=== PATIENT | male | born 1990 | race Caucasian/White ===

== ENCOUNTER 2018-01-10 20:23 | Emergency (ER) | payer SELFPAY ==
--- NOTE | 2018-01-10 20:26 | UC ---
Abdominal Pain Male HPI - HPI Summary HPI Summary: 27 yo male presents with generalized abdominal pain worst around the umbilicus that began this morning. Pt does not speak Welsh, but has a friend translating from to and from Amharic with him at this visit. Pt woke up this morning with mild to moderate abdominal pain - tried to eat breakfast, but vomited soon after. Has been vomiting multiple times today and has not eaten due to this. Denies fever, chills, SOB, chest pain, or diarrhea. - History of Current Complaint Stated Complaint: ABDOMINAL PAIN Time Seen by Provider: 01/10/18 20:25 Hx Obtained From: Patient Onset/Duration: Sudden Onset Severity Initially: Moderate Severity Currently: Severe Pain Intensity: 9 Pain Scale Used: 0-10 Numeric - Allergies/Home Medications Allergies/Adverse Reactions: Allergies Allergy/AdvReac Type Severity Reaction Status Date / Time No Known Allergies Allergy Verified 01/10/18 20:50 Home Medications: Home Medications NK [No Home Medications Reported] 01/10/18 [History Confirmed 01/10/18] PMH/Surg Hx/FS Hx/Imm Hx - Additional Past Medical History Additional PMH: None Previously Healthy: Yes - Surgical History Surgical History: Yes Surgery Procedure, Year, and Place: Right ankle - Family History Known Family History: Positive: None - Social History Lives: With Family Alcohol Use: Occasionally Substance Use Type: None Smoking Status (MU): Former Smoker Review of Systems Constitutional: Negative Skin: Negative Eyes: Negative ENT: Negative Respiratory: Negative Cardiovascular: Negative Gastrointestinal: Abdominal Pain, Vomiting, Nausea Genitourinary: Negative Neurovascular: Negative Neurological: Negative Psychological: Negative All Other Systems Reviewed And Are Negative: Yes Physical Exam - Summary Physical Exam Summary: GENERAL: Mild to moderate pain distress. Obese SKIN: No rashes, sores, lesions, or open wounds. NECK: Supple. Nontender. No lymphadenopathy. CHEST: CTAB. No r/r/w. No accessory muscle use. Breathing comfortably and in no distress. CV: RRR. Without m/r/g. Pulses intact. Brisk cap refill. ABDOMEN: Moderate TTP RLQ, LLQ, and RUQ. Severe TTP around umbilicus and LUQ. Soft. Guarding around umbilicus. No distention. Bowel sounds present NEURO: Alert. CN II-XII grossly intact. PSYCH: Age appropriate behavior. Triage Information Reviewed: Yes Vital Signs: Vital Signs: Temp Pulse Resp BP Pulse Ox 98.4 F 75 16 158/96 98 01/10/18 20:40 01/10/18 20:40 01/10/18 20:40 01/10/18 20:40 01/10/18 20:40 Abd Pain Male Course/Dx - Course Course Of Treatment: His symptoms could be related to viral gastroenteritis, however given his degree of abdominal pain - I believe he needs a more appropriate workup with potential labwork and advanced imagaing, therefore I have advised pt to go to the ED for further evaluation. - Differential Dx/Clinical Impression Provider Diagnoses: Abdominal pain. Vomiting Discharge - Sign-Out/Discharge Documenting (check all that apply): Patient Departure - Discharge Plan Condition: Stable Disposition: HOME Print Language: INDONESIAN Referrals: No Primary Care Phys,NOPCP [Primary Care Provider] - Additional Instructions: Please go to the ER for further evaluation of your abdominal pain - Billing Disposition and Condition Condition: STABLE Disposition: Home
[2018-01-10 20:54] VITALS: BP 158/96
== END 2018-01-10 20:55 | disposition home or self-care (01) ==
LOC: UCEAST 20:23
DX: R10.84 Generalized abdominal pain (principal); R11.10 Vomiting, unspecified; Z87.891 Personal history of nicotine dependence
CPT/HCPCS: 99202; G0463

== ENCOUNTER 2018-01-10 21:16 | Observation (INO) | payer SELFPAY ==
[2018-01-10] MEDS ORDERED: NS 0.9% 1000 ML* 1,000 ML IV ONE ×2 (22:03→23:21)
[2018-01-10] MEDS ORDERED: Pantoprazole IV* 40 MG IV ONE (22:03)
[2018-01-10] MEDS ORDERED: Metoclopramide IV* 5 MG/ML 2 ML VIAL IV ONE (22:03)
[2018-01-10] MEDS ORDERED: Morphine VIAL* 4 MG/ML VIAL (1 ml vial) IV ONE (22:05)
[2018-01-10] MEDS ORDERED: Morphine VIAL* 10 MG/ML 1 ML VIAL ONE (22:28)
--- NOTE | 2018-01-10 22:36 | ED ---
Abdominal Pain/Male - HPI Summary HPI Summary: This is Darian Rey documenting for Jamal Garg MD This patient is a 27 year old M presenting to [facility] with a chief complaint of a sharp, mid-abdominal pain since this morning. The patient rates the pain 10/10 in severity and denies any pain radiating to the back. Prior treatment includes a warm pack. The patient reports nausea and vomiting. He does not drink alcohol. - History of Current Complaint Chief Complaint: EDAbdPain Stated Complaint: ABD PAIN Time Seen by Provider: 01/10/18 22:00 Onset/Duration: Sudden Onset, Lasting Hours - Since this morning, Still Present Timing: Constant, Lasting Hours - Since this morning Severity Initially: Severe Severity Currently: Severe Pain Intensity: 10 Pain Scale Used: 0-10 Numeric Location: Other - mid-abdominal Radiates: No Character: Sharp Aggravating Factor(s): Nothing Alleviating Factor(s): Nothing Associated Signs And Symptoms: Positive: Nausea, Vomiting - Allergies/Home Medications Allergies/Adverse Reactions: Allergies Allergy/AdvReac Type Severity Reaction Status Date / Time No Known Allergies Allergy Verified 01/10/18 21:32 PMH/Surg Hx/FS Hx/Imm Hx Endocrine/Hematology History: Denies: Hx Diabetes, Hx Thyroid Disease Cardiovascular History: Denies: Hx Hypertension Respiratory History: Denies: Hx Asthma, Hx Chronic Obstructive Pulmonary Disease (COPD) GI History: Denies: Hx Ulcer - Surgical History Surgery Procedure, Year, and Place: Right ankle Infectious Disease History: No Infectious Disease History: Denies: Hx Hepatitis, Hx Human Immunodeficiency Virus (HIV), Traveled Outside the [place] in Last 30 Days - Family History Known Family History: Negative: Cardiac Disease, Diabetes - Social History Alcohol Use: Occasionally Substance Use Type: Reports: None Smoking Status (MU): Former Smoker Type: Cigarettes Review of Systems Positive: Abdominal Pain - Sharp, mid-abdominal pain since this morning, Vomiting - Starting this afternoon, Nausea Positive: Other - Denies back pain All Other Systems Reviewed And Are Negative: Yes Physical Exam - Summary Physical Exam Summary: VITAL SIGNS: Reviewed. GENERAL: Patient is a well-developed and nourished MALE who is lying comfortable in the stretcher. Patient is not in any acute respiratory distress. HEAD AND FACE: No signs of trauma. No ecchymosis, hematomas or skull depressions. No sinus tenderness. EYES: PERRLA, EOMI x 2, No injected conjunctiva, no nystagmus. EARS: Hearing grossly intact. Ear canals and tympanic membranes are within normal limits. MOUTH: Oropharynx within normal limits. NECK: Supple, trachea is midline, no adenopathy, no JVD, no carotid bruit, no c- spine tenderness, neck with full ROM. CHEST: Symmetric, no tenderness at palpation LUNGS: Clear to auscultation bilaterally. No wheezing or crackles. CVS: Regular rate and rhythm, S1 and S2 present, no murmurs or gallops appreciated. ABDOMEN: Soft, RUQ tenderness. No signs of distention. No rebound no guarding, and no masses palpated. Bowel sounds are normal. EXTREMITIES: FROM in all major joints, no edema, no cyanosis or clubbing. NEURO: Alert and oriented x 3. No acute neurological deficits. Speech is normal and follows commands. SKIN: Dry and warm Triage Information Reviewed: Yes Vital Signs On Initial Exam: Initial Vitals Temp Pulse Resp BP Pulse Ox 98.4 F 72 19 156/88 97 01/10/18 21:24 01/10/18 21:24 01/10/18 21:24 01/10/18 21:24 01/10/18 21:24 Vital Signs Reviewed: Yes Diagnostics - Vital Signs Vital Signs Temp Pulse Resp BP Pulse Ox 01/10/18 22:00 62 23 97 01/10/18 21:50 74 20 152/90 97 01/10/18 21:49 22 01/10/18 21:24 98.4 F 72 19 156/88 97 - Laboratory Result Diagrams: 01/10/18 22:17 01/10/18 22:17 Lab Statement: Any lab studies that have been ordered have been reviewed, and results considered in the medical decision making process. - CT CTA chest/abd/pel CT Interpretation Completed By: Radiologist - Acute apendicitis. ED physician has reviewed this radiology report. - Ultrasound No standard instances Ultrasound Interpretation Completed By: Radiologist - US Abdomen Limited, RUQ, reveals 1. Mild hepatomegaly with fatty infiltration. 2. Otherwise negative RUQ sonogram. ED Physician has reviewed this report. - EKG 7 Cardiac Rate: NL - 62 BPM EKG Rhythm: Sinus Rhythm EKG Interpretation: Normal axis. Normal interval. No ischemic changes Abdominal Pain Fem Course/Dx - Course Assessment/Plan: This patient is a 27 yo male with no past hx and is here c/o abdominal pain and vomiting since yesterday. On exam, he showed RUQ tenderness. Thought it was gall stones in the beginning. The US was negative. Showed leukocytosis. CT showed acute appendicitis. The patient was admitted to Dr. Roper. - Diagnoses Differential Diagnosis/HQI/PQRI: Other - acute appendicitis Provider Diagnoses: Acute appendicitis - Provider Notifications Discussed Care Of Patient With: Jonel Roper Time Discussed With Above Provider: 02:22 Instructed by Provider To: Other - Consulted Dr. Roper who accepts the patient for admission. Discharge - Sign-Out/Discharge Documenting (check all that apply): Patient Departure - Discharge Plan Condition: Stable Disposition: ADMITTED TO [facility]
[2018-01-10 22:40] LABS: ABS Basophils 0 10^3/ul (0-0.2); ABS Eosinophils 0 10^3/ul (0-0.6); ABS Lymphocytes 0.9 10^3/ul (1.0-4.8); ABS Monocytes 0.4 10^3/ul (0-0.8); ABS Neutrophils 15.4 10^3/ul (1.5-7.7); ABS Nucleated RBC 0.1 10^3/ul; Eosinophil % 0 % (0-6); Hematocrit 48 % (42-52); Hemoglobin 16.3 g/dl (14.0-18.0); Lymphocyte % 5.3 % (25-47); Mean Corpuscular HGB Conc 34 g/dl (31-36); Mean Corpuscular Hemoglobin 31 pg (27-31); Mean Corpuscular Volume 91 fL (80-94); Mean Platelet Volume 8.2 um3 (7.4-10.4); Nucleated Red Blood Cells % 0.6; Platelet Count 253 10^3/ul (150-450); Red Blood Count 5.23 10^6/ul (4.00-5.40); Red Cell Distribution Width 13 % (10.5-15); White Blood Count 16.7 10^3/ul (3.5-10.8)
[2018-01-10 23:01] LABS: EGFR Non-African American 117.7 (>60)
[2018-01-11] MEDS ORDERED: Iohexol 350* (CONTRAST) 500 ML MDV IV ONE (00:33)
[2018-01-11 00:39] LABS: Urine Appearance Turbid; Urine Blood Negative (Negative); Urine Color Amber; Urine Ketones 1+ (Negative); Urine Protein 2+(100 mg/dL) (Negative); Urine Red Blood Cell Absent (Absent); Urine Specific Gravity 1.031 (1.010-1.030); Urine Urobilinogen Negative (Negative); Urine White Blood Cell Trace(0-5/hpf) (Absent)
[2018-01-11] MEDS ORDERED: Piperacillin/Tazobac ADVAN(*) 3.375 GM in NS 0.9% 100 ML* 100 ML IVPB ONE (02:20)
[2018-01-11] MEDS ORDERED: Ondansetron INJ* 2 MG/ML VIAL IV PRN (03:55)
[2018-01-11] MEDS ORDERED: Zosyn per Pharmacy* NOTE FOLLOW UP PRN (03:58)
[2018-01-11] MEDS ORDERED: NS 0.9% 1000 ML* 1,000 ML IV SCH (04:00)
[2018-01-11] MEDS: Morphine VIAL* 4 MG/ML VIAL (1 ml vial) IV PRN ×2 (04:03→07:44)
[2018-01-11] MEDS ORDERED: ZOSYN 3.375 GM Q8H per EXTENDED INFUSION IVPB SCH ×2 (07:30)
[2018-01-11 08:06] VITALS: BP 148/73
--- NOTE | 2018-01-11 08:29 | RAD ---
INDICATION: 27-year-old with right upper quadrant pain COMPARISON: CT of the chest/abdomen/pelvis January 11, 2018 TECHNIQUE: Longitudinal and transverse scans of the right upper quadrant were obtained. Doppler interrogation of the hepatic and portal venous system was performed. FINDINGS: Liver: There is minor hepatic steatosis. The liver is normal in size measuring 17.4 cm in cephalocaudal dimension. There are no focal masses. Vessels: There is normal hepatic and portal venous flow. Bile ducts: There is no evidence of intrahepatic or extrahepatic ductal dilatation. The common duct measures 0.4 cm. Gallbladder: The sonographic appearance of the gallbladder is normal. There is no evidence of cholelithiasis, thickening of the gallbladder wall, or pericholecystic fluid. Pancreas: The visualized pancreas appears normal Right kidney: The right kidney is normal in size and echogenicity. There are no masses or calculi. There is no evidence of hydronephrosis. The right kidney measures 12.6 x 6.9 x 5.8 cm. IVC and aorta: The aorta and superior vena cava appear normal. Fluid: There is no ascites. Other: None. IMPRESSION: MILD HEPATIC STEATOSIS, OTHERWISE NEGATIVE
[2018-01-11] MEDS ORDERED: Bupivacaine 0.25% W/EPI* 10 ML SDV ONE ×2 (08:41)
--- NOTE | 2018-01-11 08:54 | RAD ---
INDICATION: 27-year-old with right upper quadrant pain and negative gallbladder sonogram. KARLENE request for CT angiography of the chest/abdomen/pelvis for pain. COMPARISON: Right upper quadrant sonogram same date TECHNIQUE: Axial source images were obtained from the thoracic inlet to the symphysis pubis following administration of intravenous contrast 97 mL Omnipaque [address] angiographic technique in order to evaluate for acute pulmonary embolus. Coronal and sagittal reconstructed images were acquired. CHEST FINDINGS: Neck/thyroid: The visualized neck to include the thyroid appear normal. Chest wall: There are no acute abnormalities of the bony thorax or chest wall. There is no supraclavicular, infraclavicular, or axillary lymphadenopathy. Lungs : There are no worrisome pulmonary parenchymal masses or infiltrates. There is a small calcified granuloma in the right upper lobe The pulmonary interstitium appears normal. There are no endobronchial lesions. Cardiomediastinal structures: The heart is normal in size. There is no pericardial effusion. There is no evidence of aortic aneurysm or dissection. Examination is nondiagnostic for acute pulmonary emboli due to breathing motion artifact. There is no mediastinal or hilar adenopathy. The esophagus appears normal. Pleura : There are no pleural-based masses or effusions. ABDOMINAL/PELVIC FINDINGS: Liver: The liver is normal in size. There are no masses. There is no ductal dilatation. Gallbladder: There are no calcified gallstones. There is no evidence of wall thickening or pericholecystic fluid. Spleen: The spleen is normal in size. There are no masses. Pancreas: There is no evidence of pancreatic mass or ductal dilatation. Adrenal glands: There is no evidence of adrenal mass. Kidneys: The kidneys are normal in size and position. There are prompt nephrograms and there is prompt excretion bilaterally. There are no renal parenchymal masses. There is no evidence of nephrolithiasis. Adenopathy: There is no evidence of adenopathy by size criteria. Fluid collections: There are no free or localized fluid collections. Vessels:The aorta and IVC appear normal GI tract: The upper GI tract is unremarkable. The appendix is mildly dilated and there is periappendiceal stranding with an appendicolith. The findings are compatible with early acute appendicitis. There are no findings of obstruction or perforation. The remainder the colon is unremarkable. Pelvic organs: The prostate and seminal vesicles appear normal Bladder: There are no bladder masses. Abdominal and pelvic soft tissues: The extraperitoneal abdominal and pelvic soft tissues appear normal.. Osseous structures: There are no acute osseous findings. There is a chronic L5 spondylolysis without associated anterolisthesis. IMPRESSION: 1. Nondiagnostic examination for acute pulmonary emboli. This was discussed with emergency department. Lungs clear. 2. CT findings of early acute appendicitis. 3. Chronic L5 spondylolysis without anterolisthesis
[2018-01-11] MEDS ORDERED: Lidocaine 2% PF * 5 ML VIAL ONE (09:00)
[2018-01-11] MEDS ORDERED: Propofol* 10 MG/ML 20 ML BTL IV PUSH ONE (09:00)
[2018-01-11] MEDS ORDERED: Succinylcholine* 20 MG/ML 10 ML VIAL ONE (09:01)
[2018-01-11] MEDS ORDERED: fentaNYL* 50 MCG/ML 2 ML VIAL (100 MCG VIAL) ONE (09:04)
[2018-01-11] MEDS ORDERED: Rocuronium* 10 MG/ML VIAL ONE (09:29)
[2018-01-11] MEDS ORDERED: HYDROmorphone INJ* 0.5 MG/0.5 ML SYRINGE IV PRN (09:42)
[2018-01-11] MEDS ORDERED: Acetaminophen TAB* 325 MG PO PRN (09:42)
[2018-01-11] MEDS ORDERED: HYDROmorphone INJ* 0.5 MG/0.5 ML SYRINGE ONE (09:58)
[2018-01-11] MEDS ORDERED: Sugammadex * 200 MG/2 ML VIAL IV PUSH ONE (09:58)
--- NOTE | 2018-01-11 10:06 | BRIEFOPN ---
Brief Operative Note - Surgery Procedures: Pre-OP Diagnoses: acute appendicitis Post-op Diagnosis: same Procedure: Laparoscopic appendectomy Surgeon: Aman Asst: none Anethesia: MESHAA EBL: minimal IVF: crystalloid Specimen: appendix Drains: none
--- NOTE | 2018-01-11 12:04 | HP ---
PREOPERATIVE HISTORY AND PHYSICAL: DATE OF ADMISSION: 01/11/18 LOCATION: Room 347 ATTENDING PHYSICIAN: Shayan Newton MD * (DICTATED BY DESIRAE VILLANUEVA NP) CHIEF COMPLAINT: Worsening abdominal pain. HISTORY OF PRESENT ILLNESS: The patient is a 27-year-old male who presented to the emergency department on 01/10/18 complaining of sharp mid abdominal pain rated at 10/10 associated with nausea and vomiting. CT of the abdomen and pelvis was consistent with acute appendicitis. Plans were made to take the patient to the operating room this morning for laparoscopic appendectomy. The patient does not speak Nepali so this history was obtained with the assistance of a metalizing machine operator automatic. The patient's white blood count on admission was elevated at 16.7 with a left shift and lactic acid was 2.1. All of the electrolytes were within normal limits. PAST MEDICAL HISTORY: Generally healthy. No acute or chronic conditions. PAST SURGICAL HISTORY: Right ankle surgery. MEDICATIONS: None. ALLERGIES: No known drug allergies. FAMILY HISTORY: No known anesthesia complications, bleeding tendencies, or clotting disorders. SOCIAL HISTORY: He is a former smoker of cigarettes. He denies the use of alcohol or other substances. REVIEW OF SYSTEMS: Constitutional: No fever or chills. Endocrine: No diabetes or thyroid disease. Respiratory: No chronic cough or dyspnea on exertion. Cardiovascular: No chest pain or palpitations. Gastrointestinal: In history of present illness. Genitourinary: No dysuria. Musculoskeletal: No back or joint pain. General: No previous anesthesia complications. No history of deep vein thrombosis or pulmonary embolism. No bleeding tendencies. PHYSICAL EXAMINATION GENERAL SURVEY: The patient is a 27-year-old male, well developed, obese, in no acute distress. VITAL SIGNS: Height 5 feet 7 inches, weight 248 pounds, blood pressure 146/78, pulse 77 and regular, respiratory rate 20, temperature 98.2 tympanic, O2 saturation on room air 99%. SKIN: Warm, dry, and intact. HEENT: Benign. NECK: Supple. No cervical lymphadenopathy. LUNGS: Breath sounds bilaterally clear and equal. HEART: Regular, rate, and rhythm. No murmurs or rubs appreciated. ABDOMEN: Quiet, obese, exquisitely tender in the right lower quadrant with guarding. No obvious masses or organomegaly, but exam is limited by the patient 's pain. GENITALIA and RECTAL: Deferred. MUSCULOSKELETAL: Full range of motion. NEUROLOGIC: Alert and oriented x3. Gait is steady. IMPRESSION: Acute appendicitis. PLAN/RECOMMENDATIONS: As discussed with Dr. Newton to the operating room now for laparoscopic appendectomy. TIME SPENT: 60 minutes with greater than 50% in [id number] history taking and coordination of care. DESIRAE VILLANUEVA NP [id number]/[facility] #: [id number] YESENIA
--- NOTE | 2018-01-12 04:07 | DS ---
DISCHARGE SUMMARY: DATE OF ADMISSION: 01/11/18 DATE OF DISCHARGE: 01/11/18 HOSPITAL COURSE: The patient admitted today on 01/11/18, with a diagnosis of acute appendicitis. He went to the operating room. Please see operative report for details, and he underwent an uneventful laparoscopic appendectomy. He was transferred to the PACU for planned discharge home today. [id number]/[facility] #: [id number] MTDD
--- NOTE | 2018-01-12 05:05 | OP ---
DATE OF OPERATION: 01/11/18 - ROOM #347 DATE OF : 86 SURGEON: Shayan Newton MD WAITSTAFF: None. ANESTHESIA: General anesthesia. PRE-OP DIAGNOSIS: Acute appendicitis. POST-OP DIAGNOSIS: Acute appendicitis. OPERATIVE PROCEDURE: Laparoscopic appendectomy. ESTIMATED BLOOD LOSS: Minimal blood loss. FLUIDS: Minimal crystalloid fluid given. SPECIMEN: Appendix. INDICATIONS: The patient was identified in the preoperative area. I discussed with him the case after reviewing his chart with the help of the telecommunications technician going over the risks, benefits, and alternatives including antibiotic use only and the patient agreed to proceed with surgical options after our discussion. He understood the possible complications, which include not limited to bleeding , infection, intestinal injury, need for additional surgeries, abscess formation , and possible open procedure. DESCRIPTION OF PROCEDURE: The patient was taken to the operating room, placed on the operating table in supine position. The patient has already been on preoperative antibiotics. Sequential devices were placed on bilateral lower extremities. General anesthesia was induced. Patient's abdomen was clipped of hair and prepped and draped in standard surgical fashion. A time-out was performed. The folds of the umbilicus were elevated anteriorly and a Veress needle inserted into the abdominal cavity, which was then allowed it to be insufflated to a pressure of 15 mmHg. The patient tolerated the insufflation well. A right upper quadrant incision was made and a 12-mm trocar was inserted to this. Laparoscope was inserted through this area and the Veress needle was identified that was intact. There was no evidence of injury underlying this. Next 5-mm was placed in the umbilicus and the Verses needle was then removed, then another 5-mm in the suprapubic area. The patient was positioned and appendix was identified. This was indurated with changes and there was surrounding exudative tissue. We took the attachments to the appendix to the lateral abdominal wall down with electrocautery. This allowed us to see what appeared to be the base of the appendix. We then made a window through the mesoappendix and took this with a 45- mm nicolas LEAH stapling device. Hemostasis was excellent. We were then able to pull the appendix more anteriorly into the medial aspect. We saw additional mesentery that was isolated and a clip production line mechanic was used at the site. We then had the appendix opened and could see the cecum as well as terminal ileum. We then fired a 45-mm castrejon LEAH stapling device along the base of the cecum through healthy tissue and then placed in endoscopic retrieval bag. We then irrigated the site. Hemostasis was excellent. Staple lines were intact without any abnormal stapling. The exudative tissue was suctioned around the site and also in the pelvis. The patient was then placed in the neutral position and appendix was removed in its endoscopic retrieval bag through the right upper quadrant port site. The abdomen was allowed to collapse. Trocars were removed under direct vision. All three skin incisions were reapproximated with 4-0 Monocryl subcuticular sutures followed by Steri-Strips and sterile dressing. Patient tolerated the procedure well, was woken up in the OR and transferred to the PACU for planned discharge home. [id number]/[facility] #: [id number] YESENIA
== END 2018-01-11 13:54 | disposition home or self-care (01) ==
LOC: ED 21:16 → SSU 01-11 02:40
PROVIDERS: ADMIT Surgery; ATTEND Surgery
DX: K35.80 Unspecified acute appendicitis (principal); R11.2 Nausea with vomiting, unspecified; R10.9 Unspecified abdominal pain; Z87.891 Personal history of nicotine dependence
CPT/HCPCS: 36415; 71275; 74177; 76705; 80053; 81003; 81015; 82150; 83605; 83690; 83735; 85025; 86140; 87086; 88304; 93005; 96374; 96375; 99284; C1776; G0378; J0330; J1170; J2270; J2405; J2543; J2704; J2765; J3010; Q9967